=== PATIENT | female | born 1965 | race Caucasian/White ===

== ENCOUNTER → 2017-03-04 15:13 | Outpatient (CLI) | payer BC, SELFPAY ==
--- NOTE | 2017-03-04 15:32 | MM_ITS ---
MM DIG MAMM DX UNILAT LT CAD, US BREAST LT COMPLETE COMPARISON: 01/29/2017 and 08/21/2009 INDICATION: Follow-up abnormal mammogram ORDERING PHYSICIAN: Beba Graham PATIENT AGE: 51 years TECHNIQUE: Problem solving is performed along with left breast ultrasound FINDINGS: There is average fibroglandular tissue. There is an 11 x 7 mm nodular density in the deep aspect of the left breast laterally at the 3:00 region. Well-circumscribed with well-defined margins probably related to a cyst. In addition, there is a 5 mm nodular density in the lateral aspect of the left breast. No malignant appearing calcifications evident. Left breast ultrasound: 5 mm cyst at 3:00. There is an additional 7 mm cyst at 3:00. 6 mm cyst is present at the nipple. 6 mm complex cyst noted at 9:00. There is some tubular ectasia in the retroareolar region. No solid lesions evident. IMPRESSION: Fairly well-circumscribed asymmetric density in the lateral left breast may correspond to where this cyst noted on the mammogram. There is some discord and in size however therefore, short-term follow-up is recommended. BI-RADS Category: 3 Benign Finding Short Term Follow-up RECOMMENDED FOLLOWUP: 6M - 6 MONTH FOLLOW-UP (A letter has been sent to the patient regarding results of the study.)
== END ==
PROVIDERS: Family Provider Internal Medicine Adolescent Medicine; PCP Internal Medicine Adolescent Medicine; Visit Provider Nurse Practitioner Family
DX: R92.8 Other abnormal and inconclusive findings on diagnostic imaging of breast (principal)
CPT/HCPCS: 19083; 76641; 77065

== ENCOUNTER → 2018-11-16 10:59 | Outpatient (CLI) | payer BC, SELFPAY ==
--- NOTE | 2018-11-16 11:04 | US_ITS ---
PROCEDURE: US SOFT TISSUE HEAD AND NECK CLINICAL INDICATION: GOITER Palpable abnormality of the right neck, fatigue, night sweats COMPARISON: No exams were available for comparison FINDINGS: In the area of palpable concern there is a 1.4 x 0.6 cm area of decreased echogenicity with some increased echoes centrally consistent with a lymph node. Additional nodes are present including a 2.9 x 0.7 cm node in the right neck. Smaller nodes are present on the left measuring up to 9 mm. The parotid and submandibular glands have an unremarkable appearance. IMPRESSION: Bilateral cervical lymph nodes measuring up to 2.9 x 0.7 cm on the right. Consider CT of the neck with contrast for more thorough evaluation and better quantitation Dictated by: Alphonse Camargo MD 11/16/2018 15:55 Electronically signed by Alphonse Camargo MD in [facility] 11/16/2018 15:55
--- NOTE | 2018-11-16 11:05 | XR_ITS ---
PROCEDURE: XR LUMBAR SPINE 2-3V CLINICAL INDICATION: LOW BACK PAIN COMPARISON: No exams were available for comparison FINDINGS: Normal alignment. There are small endplate osteophytes at T12-L1 and L3 and L4 with mild degenerative disc disease at L4-5 and L5-S1. There are mild facet arthritic changes at L5-S1. Generalized vascular calcification is noted. There are bilateral tubal ligation clips. No fracture or dislocation. IMPRESSION: Degenerative changes, no acute finding Dictated by: Alphonse Camargo MD 11/16/2018 13:01 Electronically signed by Alphonse Camargo MD in [facility] 11/16/2018 13:01
--- NOTE | 2018-11-16 11:05 | XR_ITS ---
PROCEDURE: XR HIP LT 2-3V W/PELVIS CLINICAL INDICATION: YAQUELIN HIP PAIN COMPARISON: No exams were available for comparison FINDINGS: No fracture or dislocation is evident. No significant degenerative change. No lytic or blastic change. Unremarkable soft tissues. IMPRESSION: Negative left hip Dictated by: Alphonse Camargo MD 11/16/2018 13:01 Electronically signed by Alphonse Camargo MD in [facility] 11/16/2018 13:01
--- NOTE | 2018-11-16 11:24 | XR_ITS ---
PROCEDURE: XR HIP RT 2-3V W/PELVIS CLINICAL INDICATION: LOW BACK PAIN, HIP PAIN Right hip pain COMPARISON: XR HIP LT 2-3V W/PELVIS from 11/16/2018 FINDINGS: No fracture or dislocation is evident. No significant degenerative change. No lytic or blastic change. Unremarkable soft tissues. Nonspecific small cluster of calcification noted within the soft tissues in the right inguinal region IMPRESSION: No acute findings. Dictated by: Alphonse Camargo MD 11/16/2018 12:59 Electronically signed by Alphonse Camargo MD in [facility] 11/16/2018 12:59
[2018-11-16 14:59] LABS: Basophils # 0.1 K/mm3 (0-0.2); Basophils % 0.8 % (0.1-2.0); Eosinophils # 0.6 K/mm3 (0.0-0.4); Eosinophils % 4.3 % (0.1-12.0); Hematocrit 42.3 % (37.0-47.0); Hemoglobin 13.7 g/dL (12.2-16.2); Lymphocytes # 4.9 K/mm3 (0.7-4.5); Lymphocytes % 36.8 % (10-50); Mean Corpuscular HGB Conc 32.3 g/dL (31.8-35.4); Mean Corpuscular Hemoglobin 29.6 pg (27.0-31.2); Mean Corpuscular Volume 91.6 fl (81-99); Mean Platelet Volume 7.7 fl (7.4-10.4); Monocytes # 0.8 K/mm3 (0.1-1.0); Neutrophils # 6.9 K/mm3 (1.8-7.8); Neutrophils % 52.2 % (37.0-80.0); Platelet Count 333 K/mm3 (142-424); Red Blood Count 4.62 M/mm3 (4.20-5.40); Red Cell Distribution Width 13.2 % (11.5-17.5); White Blood Count 13.3 K/mm3 (4.8-10.8)
[2018-11-16 15:00] LABS: C-Reactive Protein 0.3 mg/dL (0.0-0.9)
[2018-11-16 19:20] LABS: Erythrocyte Sedimentation Rate 16 mm/hr (0-30)
[2018-11-18 13:55] LABS: Peripheral Smear Review Scanned Result
== END ==
PROVIDERS: PCP Nurse Practitioner Family; Visit Provider Nurse Practitioner Family
DX: E04.0 Nontoxic diffuse goiter (principal); M25.552 Pain in left hip; M54.5 Low back pain
CPT/HCPCS: 36415; 72100; 73502; 76536; 85025; 85651; 86140

== ENCOUNTER → 2018-12-06 09:36 | Outpatient (CLI) | payer BC, SELFPAY ==
--- NOTE | 2018-12-06 09:41 | CT_ITS ---
PROCEDURE: CT ABDOMEN PELVIS W CON CLINICAL HISTORY: LYMPHADENOPATHY, HIP PAIN COMPARISON: US SOFT TISSUE HEAD AND NECK from 11/16/2018 TECHNIQUE: 50 mL Optiray 350 Axial images obtained with sagittal and coronal reformats. All CT scans at the facility use one or more dose reduction, viz: automated exposure control, ma/kV adjustment per patient size (including targeted exams where dose is matched to indication, i.e. head), or iterative reconstruction technique. FINDINGS: There are 2 hypoattenuating lesions of the liver the largest in the left hepatic lobe measuring 13 mm and may represent hepatic cysts. The gallbladder, spleen, adrenal glands, and pancreas have an unremarkable appearance. There is a 1 cm isodense lesion of the mid aspect of the left kidney an exophytic isodense lesion of the left kidney posteriorly at 1.6 cm as well as a small cortical isodense area in the lower pole of the left kidney at 7 mm.. These are consistent with renal cyst and may be confirmed with ultrasound. There are scattered small mesenteric lymph nodes but no dominant mesenteric or retroperitoneal adenopathy. Unremarkable appendix. Urinary bladder is distended. There is a cystic area in the medial aspect of the right ovary at 2.7 cm in the right adnexal region. In the lower uterine segment on the left there is a bilocular cystic region at 3.5 by 2.6 cm associated with some coarse calcifications. This appears to be in the uterus and not ovarian in nature. Consider pelvic ultrasound for further evaluation. There is some mild ectasia of the right femoral vein and common femoral vein No acute bony anomalies. IMPRESSION: 1. Hepatic and left renal cysts 2. Scattered small mesenteric, retroperitoneal, and inguinal lymph nodes with no dominant or suspicious adenopathy evident. 3. Abnormal appearance of the uterus with a bilocular cystic area in the lower uterine segment with some associated calcifications along with cystic right adnexal lesion. Suggest pelvic ultrasound for further evaluation. Dictated by: Alphonse Camargo MD 12/07/2018 18:53 Electronically signed by Alphonse Camargo MD in [place] 12/07/2018 18:53
--- NOTE | 2018-12-06 09:41 | CT_ITS ---
PROCEDURE: CT SOFT TISSUE NECK W CON CLINICAL HISTORY: LYMPHADENOPATHY Generalized lymphadenopathy COMPARISON: No exams were available for comparison TECHNIQUE: Oral Contrast: IV Contrast: 50 mL Optiray 350 Axial images obtained with sagittal and coronal reformats. All CT scans at the facility use one or more dose reduction, viz: automated exposure control, ma/kV adjustment per patient size (including targeted exams where dose is matched to indication, i.e. head), or iterative reconstruction technique. FINDINGS: There is moderate mucosal thickening of the sphenoid sinus with mild mucosal thickening of the ethmoid sinuses and left maxillary sinus. No mastoid effusion. There is mild symmetrical prominence of the nasopharyngeal mucosa. There is also mild prominence of the lingual tonsils on the right. No abscess. There are few small bilateral cervical lymph nodes but no dominant adenopathy. The parotid and submandibular glands have an unremarkable appearance as does the epiglottis and glottic region. No thyroid masses. There is mild degenerative disc disease at C5-C6 and C6-C7. There is mild cervical curvature convex right. IMPRESSION: 1. Mild paranasal sinus disease. 2. Mild prominence of the lingual tonsils on the right nonspecific. 3. Small bilateral cervical nodes but no dominant adenopathy. Dictated by: Alphonse Camargo MD 12/07/2018 18:42 Electronically signed by Alphonse Camargo MD in [place] 12/07/2018 18:42
--- NOTE | 2018-12-06 09:41 | CT_ITS ---
PROCEDURE: CT CHEST W CON CLINICAL HISTORY: LYMPHADENOPATHY COMPARISON: No exams were available for comparison TECHNIQUE: 50 mL Optiray 350 Axial images obtained with sagittal and coronal reformats. All CT scans at the facility use one or more dose reduction, viz: automated exposure control, ma/kV adjustment per patient size (including targeted exams where dose is matched to indication, i.e. head), or iterative reconstruction technique. FINDINGS: No mediastinal or hilar mass or adenopathy. Normal heart size. No evidence of pericardial effusion. Calcified granuloma is present in the right upper lobe. There are mild atelectatic changes in the lung bases. There are mild centrilobular emphysematous changes. No suspicious pulmonary lesions evident. No acute bony anomalies. There are mild degenerative changes of the thoracic spine with mild thoracic scoliosis convex right in the midthoracic spine and convex left in the upper thoracic spine. There are small nodes in the axilla and supraclavicular region but no dominant adenopathy evident IMPRESSION: Nonspecific nonacute findings. No adenopathy apparent Dictated by: Alphonse Camargo MD 12/07/2018 18:46 Electronically signed by Alphonse Camargo MD in [place] 12/07/2018 18:46
--- NOTE | 2018-12-06 09:46 | XR_ITS ---
PROCEDURE: XR CHEST 2V CLINICAL HISTORY: Enlarged neck lymph node on the right side COMPARISON: CT CHEST W CON from 12/06/2018 FINDINGS: The cardiomediastinal silhouette and pulmonary vascularity are within normal limits. There are mild atelectatic or fibrotic changes in the lung bases. The remaining lungs are clear. Mild upper thoracic curvature convex left. No acute bony abnormalities. IMPRESSION: Atelectatic or fibrotic changes in the lung bases otherwise negative Dictated by: Alphonse Camargo MD 12/06/2018 18:06 Electronically signed by Alphonse Camargo MD in [place] 12/06/2018 18:06
== END ==
PROVIDERS: PCP Nurse Practitioner Family; Visit Provider Internal Medicine Medical Oncology
DX: R59.9 Enlarged lymph nodes, unspecified (principal); R59.0 Localized enlarged lymph nodes; M25.552 Pain in left hip
CPT/HCPCS: 70491; 71046; 71260; 74177; Q9967

== ENCOUNTER → 2018-12-08 10:42 | Outpatient (CLI) | payer BC, SELFPAY ==
[2018-12-08 11:21] LABS: Basophils # 0.1 K/mm3 (0-0.2); Basophils % 0.8 % (0.1-2.0); Eosinophils # 0.5 K/mm3 (0.0-0.4); Eosinophils % 3.6 % (0.1-12.0); Hematocrit 35.7 % (37.0-47.0); Hemoglobin 12.5 g/dL (12.2-16.2); Lymphocytes # 3.6 K/mm3 (0.7-4.5); Mean Corpuscular Hemoglobin 32.7 pg (27.0-31.2); Mean Corpuscular Volume 93.6 fl (81-99); Monocytes # 0.7 K/mm3 (0.1-1.0); Monocytes % 5.5 % (1.7-9.3); Neutrophils # 8.4 K/mm3 (1.8-7.8); Neutrophils % 63.1 % (37.0-80.0); Platelet Count 282 K/mm3 (142-424); Red Blood Count 3.82 M/mm3 (4.20-5.40); Red Cell Distribution Width 13.9 % (11.5-17.5); White Blood Count 13.2 K/mm3 (4.8-10.8)
[2018-12-08 13:10] LABS: Blood Urea Nitrogen 16 mg/dL (7-18); Creatinine,Serum 0.86 mg/dL (0.55-1.02); Estimated Glomerular Filt Rate 69 ml/min (>60); GFR (African American) 84 ML/MIN (>60)
== END ==
PROVIDERS: Visit Provider Otolaryngology
DX: R59.9 Enlarged lymph nodes, unspecified (principal)
CPT/HCPCS: 36415; 82565; 84520; 85025

== ENCOUNTER → 2019-10-25 14:52 | Outpatient (POV) | payer BC, SELFPAY ==
[2019-10-25 15:18] VITALS: BP 122/78; PULSE 74; RESP 18; O2SAT 98; BMI 31.9
--- NOTE | 2019-10-25 15:43 | HMH.PMCON ---
Assessment and Plan (1) Degenerative joint disease (DJD) of lumbar spine Current visit: Yes Status: Chronic Category: Medical Code(s): M47.816 - Spondylosis without myelopathy or radiculopathy, lumbar region (2) Sacroiliitis Current visit: Yes Status: Chronic Category: Medical Code(s): M46.1 - Sacroiliitis, not elsewhere classified - Assessment and plan all Dx Assessment and Plan for all problems:: Patient and I discussed options in regards to treatment of her left SI joint pain. We will send her to physical therapy for evaluation and treatment. Patient is currently on anti-inflammatories. I also discussed side sleeping utilizing a pillow between her legs. I also discussed the use of an SI joint belt. Follow-up with her after physical therapy reassess her symptoms that time she has been instructed to call the office if she has any issues prior to her next appointment. Dr. Soriano has reviewed this note and agrees with this plan of care. This note was dictated using voice recognition software and may contain errors or omissions HPI - Data of Consult Consult date: 10/25/19 Requesting Physician: Deanne Monaco APRN Primary Care Provider: Eva Hoyt - Consult Narrative Reason for consult: Left-sided lower back pain History of present illness: Ms. Hoover is a 54 year old female presents today for consultation in regards to her lower back pain. Patient has had pain for quite some time however it is gotten worse. She was seen a chiropractor which did help. She rates her pain a 5 out of 10 mostly in her left leg does radiate down but it does not past her knee. She is tender over her SI joint. Patient is on an anti-inflammatory medication. Patient has a positive Sallie test SI joint compression test and Anna's test on the left side. CC: Deanne Monaco APRN [facility] History I have reviewed the patient's past medical history: Yes Medical History: Reports:: Anxiety, Depression, Hyperlipidemia, Hypertension, Migraine, Tuberculosis Denies:: Cancer, Diabetes Mellitus Type 1, Diabetes Mellitus Type 2, MRSA *Have you ever received a pneumonia vaccine?: Yes *Have you received a flu vaccine this season?: Yes Other Medical History: Reports: Arthritis Laterality Cases: Bilateral: Tonsillectomy Other Surgeries: Yes: No Previous Surgery Amputation: No - *Social History Smoking Status: Never smoker Alcohol Intake: never Alcohol Intake Frequency:: holidays/special occasions only Substance Use Type: denies use *Occupational Status:: other Housing: house Household Members: other *Travel in the last 8 weeks: None - Psychiatric History Pschychiatric History:: Reports:: Anxiety, Depression Family Hx:: Unable to obtain Review of Systems - Review of Systems ROS General: no recent weight change, no fever, no sleep disturbances Respiratory: no cough, no shortness of air, no recurring pulmonary infections Cardiovascular/Peripheral Vascular: No chest pain, No palpitations, no edema, no shortness of breath. Gastrointestinal: no new onset incontinence, normal bowel movements reported Genitourinary: no new onset incontinence Musculoskeletal: SI joint pain Psychiatric: normal mood/ affect Neurological: [denies new onset weakness in extremities], [denies new onset balance issues] Meds Home Medications Medication Instructions Recorded Confirmed Type atorvastatin 40 mg tablet 40 mg PO DAILY 11/16/18 12/21/18 History cetirizine 10 mg capsule 10 mg PO DAILY 11/16/18 12/21/18 History cholecalciferol (vitamin D3) 25 1,000 unit PO DAILY 11/16/18 12/21/18 History mcg (1,000 unit) capsule citalopram 20 mg tablet 20 mg PO DAILY 11/16/18 12/21/18 History diclofenac sodium 75 mg 75 mg PO BID 11/16/18 12/21/18 History tablet,delayed release fluticasone propionate 50 1 spray INTRANASAL DAILY 11/16/18 12/21/18 History mcg/actuation nasal spray,suspension hydrochlorothiazide 12.5 mg capsule 12
== END ==
PROVIDERS: PCP Nurse Practitioner Family; Visit Provider Clinical Nurse Specialist Family Health
DX: M47.816 Spondylosis without myelopathy or radiculopathy, lumbar region (principal); M46.1 Sacroiliitis, not elsewhere classified
CPT/HCPCS: 99202

== ENCOUNTER → 2019-11-12 10:46 | Outpatient (CLI) | payer BC, SELFPAY ==
--- NOTE | 2019-11-12 10:50 | MM_ITS ---
PROCEDURE: MM DIG SCREENING MAMM BI W/CAD Digital Breast Tomosynthesis Included CLINICAL INDICATION: SCREENING There is no personal or family history of breast cancer. There has been a previous biopsy right breast for benign disease. COMPARISON: MG MM Digitiz Mammo Award Machine Operator from 08/21/2009 MG MM MOBILE MAMMO DIGITAL SCREEN W CAD YAQUELIN from 01/29/2017 MG DXLT MM Dig mamm DX unilat LT CAD from 03/04/2017 TECHNIQUE: Standard CC and MLO images and 3D Tomosynthesis was obtained. R2 CAD reviewed. FINDINGS: Mild to moderate scattered fibroglandular densities are seen in the central portions and subareolar regions of both breasts. There is a stable benign-appearing asymmetric density outer quadrant left breast. There is a small mole marker near the axilla left breast. There is a biopsy clip right breast. There is no suspicious lesion and no suspicious microcalcifications. IMPRESSION: Fibrofatty parenchyma with no suspicious lesions seen BI-RAD Category: 2 Benign Finding(s) FOLLOW-UP: 1YR 1 Year Follow-up (A letter has been sent to the patient regarding results of the study.) Dictated by: Dr. Pro Mike MD 11/16/2019 08:00 Dr. Pro Mike MD in [place] 11/16/2019 08:00
== END ==
PROVIDERS: PCP Nurse Practitioner Family; Visit Provider Nurse Practitioner Family
DX: Z12.31 Encounter for screening mammogram for malignant neoplasm of breast (principal)
CPT/HCPCS: 77063; 77067

== ENCOUNTER 2019-12-03 13:00 | Outpatient (RCR) | payer BC, SELFPAY ==
--- NOTE | 2019-11-06 06:59 | HMH.PTOPEV ---
PT Outpatient Evaluation Rehab PT Outpatient Evaluation Start: 11/01/19 15:32 Freq: Status: Active Protocol: Document 11/01/19 15:45 [email or web address] (Rec: 11/02/19 10:14 [email or web address] [id number]) Electronically Signed By Cristino Juarez, PT 11/01/19 15:45 Outpatient Therapy Subjective History Subjective History Pt. is a 54 year old female who presents to Outpatient PT clinic w/ complaints of constant and chronic LBP! of insidious onset 2+ years, and subacute and constant LLE hip spanning inferiorly to LLE knee P! of insidious onset 6 months ago. Pt. reports she is currently ambulating 3 miles daily(PT instructed pt. to discontinue at this time, pt. vocalized understanding) and states P! is worse at the start, but is then tolerable throughout. Pt. also reports symptoms worsening w/ sweeping and standing at the sink washing dishes. Pt. denies having recent diagnostic imaging taken of the L hip/LB, but states having an MRI in 2018 that was positive for bulging disc per pt. report. Pt. reports she wants to avoid injections/surgery if all possible. Pt. 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 Current medications include Diclofenac, Citalopram , Atorvastatin, and Hydrochlorothiazide. PMH includes Hypertension and previous RUE wrist fx. Chief Complaint Pain,Paresthesia Symptom Type Ache,Throb,Sharp,Burning, Numbness Symptoms Relieved By Brace/Support Symptoms Aggravated By Sitting,Physical Activity, Walking Prior Functional Limitations None Current Functional Limitations Sleeping,Standing,Sitting, Recreation Activity,Walking Symptom Description Constant and Continuous Level of pain today (0-
== END 2019-12-18 16:44 | disposition home or self-care (01) ==
LOC: PT.CARL 13:00
PROVIDERS: PCP Nurse Practitioner Family; Visit Provider Clinical Nurse Specialist Family Health
DX: M53.3 Sacrococcygeal disorders, not elsewhere classified (principal)
CPT/HCPCS: 97110; 97140; 97163

== ENCOUNTER 2019-12-17 19:49 | Emergency (ER) | payer BC, SELFPAY ==
[2019-12-17 19:58] VITALS: BP 140/98; PULSE 69; RESP 20; TEMP 36.6; O2SAT 98; BMI 31.9
--- NOTE | 2019-12-17 20:25 | HMH.EDUTC ---
[facility] [place] Disposition Clinical Impression: Viral syndrome Pharyngitis Qualifiers: Pharyngitis/tonsillitis etiology: unspecified etiology Qualified Code(s): J02.9 - Acute pharyngitis, unspecified Disposition: Home, Self-Care Condition on Discharge: Good Instructions: DI for Viral Syndrome Additional Instructions: Drink plenty of fluids. Take tylenol or ibuprofen for pain or fever. Take the medications as directed. Follow up with your regular doctor. GO TO THE ER FOR ANY WORSENING SYMPTOMS FOLLOW THE DIRECTIONS ON THE COVID-19 HAND OUT THAT WE GAVE YOU REGARDING SELF-ISOLATION UNTIL YOU KNOW YOUR COVID-19 RESULTS Prescriptions: Azithromycin [Z-Bernard 250mg Tab*] 250 mg PO UD DOSE PK #6 tab Transmission Status: Received by [id number] Referrals: Eva Hoyt [Primary Care Provider] - Time of Disposition: 20:41 Medical Decision Making - Medical Records Medical records reviewed: No: I reviewed the patient's medical records. - Peyman Inquiry Pt receiving controlled substance: No Vital Signs: 12/17/19 19:58 12/17/19 20:57 Temperature 97.9 F 97.9 F Temperature Source Temporal Artery Scan Oral Pulse Rate 69 Pulse Rate [Radial] 69 Respiratory Rate 20 20 Blood Pressure 140/98 H Blood Pressure [Right Arm] 140/98 H Blood Pressure Mean [Right Arm] 112 Blood Pressure Source Automatic Cuff Blood Pressure Source [Right Arm] Automatic Cuff Blood Pressure Position Sitting Blood Pressure Position [Right Arm] Sitting 02 Sat by Pulse Oximetry 98 Oxygen Delivery Method Room Air Room Air - Lab Data Lab results reviewed: Yes: I reviewed the patient's lab results. Orders (Tests/Meds): ED MEDICATIONS Discontinued Medications Generic Name Dose Route Start Last Admin Trade Name Freq PRN Reason Stop Dose Admin Azithromycin 500 mg 12/17/19 20:37 12/17/19 20:46 Azithromycin 250mg Tablet PO 12/17/19 20:38 500 mg ONCE ONE Administration Protocol ORDERS Category Date Time Status Covid-19 Nasal PCR Sendout Jose [facility] Stat Lab 12/17/19 20:04 Received [facility] [place] HPI - General Stated complaint: Sore throat, nausea, fever, cough Time Seen by Provider: 12/17/19 20:25 Mode of Arrival: Ambulatory Source of Information: Patient Limitations: No Limitations Description of Symptoms (Recalled from Triage Doc. by RN): fever, chills, sore throat since last night. temp of 99.7 HEENT Symptoms (Recalled from RN notes): Yes Resp Symptoms (Recalled from RN notes): No Skin Symptoms (Recalled from RN notes): No MS Symptoms (Recalled from RN notes): No Functional Status (Recalled from RN notes): wnl - History of Present Illness Provider Complaint: She states that she has had a sore throat, low grade fever, chills, head ache and feeling bad since earlier today. - Related Data Home Medications Medication Instructions Recorded Confirmed atorvastatin 40 mg tablet 40 mg PO DAILY 11/16/18 12/21/18 cetirizine 10 mg capsule 10 mg PO DAILY 11/16/18 12/21/18 cholecalciferol (vitamin D3) 25 1,000 unit PO DAILY 11/16/18 12/21/18 mcg (1,000 unit) capsule citalopram 20 mg tablet 20 mg PO DAILY 11/16/18 12/21/18 diclofenac sodium 75 mg 75 mg PO BID 11/16/18 12/21/18 tablet,delayed release fluticasone propionate 50 1 spray INTRANASAL DAILY 11/16/18 12/21/18 mcg/actuation nasal spray,suspension hydrochlorothiazide 12.5 mg capsule 12.5 mg PO DAILY 11/16/18 12/21/18 meloxicam 15 mg tablet 15 mg PO DAILY 11/16/18 12/21/18 multivitamin,Ca,min-folic mcg PO tab 11/16/18 12/21/18 acid-herbal no.160 100 mcg tablet naltrexone 8 mg-bupropion 90 mg 2 tab PO BID 11/16/18 12/21/18 tablet,extended release Previous Rx's Medication Instructions Recorded Azithromycin [Z-Bernard 250mg Tab*] 250 mg PO UD DOSE PK #6 tab 12/17/19 Allergies Allergy/AdvReac Type Severity Reaction Status Date / Time INGREDIENT: NO KNOWN - NO Allergy Unknown Uncoded 12/08/18 11:10 KNOWN DRUG ALLERGY
[2019-12-17 20:57] VITALS: BP 140/98; PULSE 69; RESP 20; TEMP 36.6; O2SAT 98
[2019-12-18 09:51] LABS: UTC Strep Screen (Rapid) Negative (Negative)
== END 2019-12-17 20:58 | disposition home or self-care (01) ==
PROVIDERS: Emergency Provider Nurse Practitioner Family; PCP Nurse Practitioner Family
DX: Z20.828 Contact with and (suspected) exposure to other viral communicable diseases (principal); B34.9 Viral infection, unspecified; J02.9 Acute pharyngitis, unspecified; F41.8 Other specified anxiety disorders; E78.5 Hyperlipidemia, unspecified; I10 Essential (primary) hypertension; G43.709 Chronic migraine without aura, not intractable, without status migrainosus; Z79.899 Other long term (current) drug therapy
CPT/HCPCS: 87880; 99202; U0003; U0004

== ENCOUNTER → 2020-02-07 12:41 | Outpatient (POV) | payer BC, SELFPAY ==
--- NOTE | 2020-02-07 13:04 | P.CONS_ITS ---
[facility] Pain Management SOAP Note Subjective:: Is a pleasant 54-year-old white female who presents today for follow-up. Patient has left SI joint issues. She has completed over 6 weeks of physical therapy she has gotten somewhat better however her pain is still 7 out of 10. She is having difficulty sleeping and doing her activities of daily living. Patient is interested in injection therapy. She is failed over 3 months of conservative therapy including medications, anti-inflammatories, and physical therapy. ROS General: no recent weight change, no fever, no sleep disturbances Respiratory: no cough, no shortness of air, no recurring pulmonary infections Cardiovascular/Peripheral Vascular: No chest pain, No palpitations, no edema, no shortness of breath. Gastrointestinal: no new onset incontinence, normal bowel movements reported Genitourinary: no new onset incontinence Musculoskeletal: SI joint pain Psychiatric: normal mood/ affect Neurological: [denies new onset weakness in extremities], [denies new onset balance issues] Objective:: Physical Exam General: Alert and oriented x3, no acute distress, pleasant and cooperative, [on room air] Lungs: Resps E/U, Symmetrical chest expansion, Eyes: PERRL Musculoskeletal: Flexion and extension of lumbar spine somewhat guarded secondary to pain, deep tendon reflexes normal, strength in upper and lower extremities [5/5], [abnormal gait noted] positive Sallie test SI joint compression test distraction test and Anna's test on the left side. Neurological: speech clear, supervisor production department equal, no gross sensory deficits Assessment:: Sacroiliitis Plan:: We will schedule the patient for a left SI joint injection. I will follow-up with her after this reassess her symptoms at that time she has been instructed to call the office if she has any issues prior to her next appointment. Dr. Soriano has reviewed this note and agrees with this plan of care. This note was dictated using voice recognition software and may contain errors or omissions [facility] History I have reviewed the patient's past medical history: Yes Medical History: Reports:: Anxiety, Depression, Hyperlipidemia, Hypertension, Migraine, Tuberculosis Denies:: Cancer, Diabetes Mellitus Type 1, Diabetes Mellitus Type 2, MRSA *Have you ever received a pneumonia vaccine?: Yes *Have you received a flu vaccine this season?: Yes Other Medical History: Reports: Arthritis Laterality Cases: Bilateral: Tonsillectomy Other Surgeries: Yes: No Previous Surgery Amputation: No - *Social History Smoking Status: Never smoker Alcohol Intake: never Alcohol Intake Frequency:: holidays/special occasions only Substance Use Type: denies use *Occupational Status:: other Housing: house Household Members: other *Travel in the last 8 weeks: None - Psychiatric History Pschychiatric History:: Reports:: Anxiety, Depression Family Hx:: Unable to obtain
[2020-02-07 13:50] VITALS: BP 125/85; PULSE 74; RESP 18; TEMP 36.8; O2SAT 98; BMI 31.9
== END ==
PROVIDERS: PCP Nurse Practitioner Family; Visit Provider Clinical Nurse Specialist Family Health
DX: M46.1 Sacroiliitis, not elsewhere classified (principal)
CPT/HCPCS: 99212

== ENCOUNTER 2020-02-18 14:02 | Day surgery (SDC) | payer BC, SELFPAY ==
[2020-02-18 14:29] VITALS: BP 137/88; PULSE 88; RESP 18; TEMP 36.4; O2SAT 99; BMI 31.1
[2020-02-18 14:47] VITALS: BP 119/75; BP 125/74; PULSE 74; PULSE 76; RESP 18; O2SAT 98
--- NOTE | 2020-02-18 14:50 | HMH.PMPROC ---
- Procedure Date: 02/18/20 Time: 14:50 Anesthesiologist:: Deanne Monaco APRN Complications:: None Pre-procedure Diagnosis:: Sacroiliitis Post-procedure Diagnosis:: Same Indications for Procedure:: Patient is a pleasant 54-year-old white female who presents today for left SI joint injection. Patient has completed over 6 weeks of physical therapy. She had somewhat better however she still rates her pain a 7 out of 10. She has difficulty sleeping. Patient has a positive Sallie test SI joint compression test Anna's test distraction test on the left side. We will move forward with left SI joint injection today. Procedure Details:: Informed consent was obtained and the risks and benefits of the procedure were explained to the patient. Patient was taken to the procedure room. Patient was placed prone on the procedure table. The left hip was prepped using ChloraPrep as a cleansing solution. The skin and subcutaneous tissues were anesthetized using lidocaine. Using fluoroscopic guidance I placed a 22-gauge spinal needle into the inferior aspect of the left SI joint. After this I injected 5 mL bupivacaine 0.25% and Depo-Medrol 40 mg into the left SI joint. The patient tolerated the procedure well with no complication. Plan and Disposition:: I will see the patient back in several weeks reassess her symptoms at that time she has been instructed to call the office if she has any issues prior to her next appointment. Dr. Soriano has reviewed this note and agrees with this plan of care. This note was dictated using voice recognition software and may contain errors or omissions
[2020-02-18 15:00] VITALS: BP 147/94; PULSE 83; RESP 20; O2SAT 99
== END 2020-02-18 15:01 | disposition home or self-care (01) ==
LOC: SC.PAINP 14:03
PROVIDERS: PCP Nurse Practitioner Family; Visit Provider Clinical Nurse Specialist Family Health
DX: M46.1 Sacroiliitis, not elsewhere classified (principal); E78.5 Hyperlipidemia, unspecified; F41.9 Anxiety disorder, unspecified
CPT/HCPCS: 27096; G0260; J1040; Q9966

== ENCOUNTER → 2020-02-28 10:05 | Outpatient (POV) | payer BC, SELFPAY ==
--- NOTE | 2020-02-28 11:34 | HMH.PAINSOAP ---
[facility] Pain Management SOAP Note Subjective:: Patient is a 54-year-old white female who presents today for follow-up. She recently had a left SI joint injection. She did well with her injection. She does say, however, following her injection she did a great deal of walking for [employer] shopping. She says that her pain has now changed from the left side over to the right side. She rates her pain an 8 out of 10 today. She is having difficulty sleeping and standing and doing her usual activities. She has tried physical therapy for greater than 6 weeks. She has also failed conservative therapies for 3 months which included medications and a home stretching program. She did get about 80% relief from her left SI joint injection and is continuing to get relief. Review of Systems General: No recent weight changes, no fever, no sleep disturbances Respiratory: No cough, no shortness of air, no recurring pulmonary infections Cardiovascular/peripheral vascular: No chest pain, no palpitations, no edema, no shortness of breath Gastrointestinal: No new onset incontinence, normal bowel movements reported Genitourinary: No new onset incontinence Musculoskeletal: Right low back pain with radiation into right hip and groin, numbness and tingling right leg Psychiatric: Normal mood/affect Neurological: [Denies weakness in extremities], [denies balance issues] Objective:: Physical exam General: Alert and oriented x3, no acute distress, pleasant and cooperative, [on room air] Lungs: Respirations even and unlabored, symmetrical chest expansion Eyes: PERRL Musculoskeletal: Flexion and extension of lumbar spine somewhat guarded secondary to pain, deep tendon reflexes normal, strength in upper and lower extremities [5/5], [abnormal gait noted], positive compression test, positive Anna's test, positive distraction test Neurological: Speech clear, grey percher equal, no gross sensory deficit Assessment:: Right sacroiliitis Plan:: We will schedule the patient for right SI joint injection. She has had a left SI joint injection in the past and has gotten relief. She will continue with anti-inflammatories. We will see her back in clinic after her SI injection to reassess her symptoms. She has been given instructions regarding the injection. She would like to proceed with the injection. She has been instructed to contact clinic if she has any concerns before next appointment. The patient and I specifically discussed risk factors for COVID19. These risks include, but are not limited to age greater than 60, heart or lung disease, diabetes, immunosuppression, and travel. We also discussed NSAIDs may worsen COVID19 infection or symptoms. Patient should not use NSAIDs to treat COVID19 signs or symptoms. Patient was also informed that any type of corticosteroid of any form (oral or injection) will decrease the patient's immune system response and may increase the likelihood of COVID19 infection and symptoms. And [facility] History I have reviewed the patient's past medical history: Yes Medical History: Reports:: Anxiety, Depression, Hyperlipidemia, Hypertension, Migraine, Tuberculosis Denies:: Cancer, Diabetes Mellitus Type 1, Diabetes Mellitus Type 2, MRSA, Seizures *Have you ever received a pneumonia vaccine?: No *Have you received a flu vaccine this season?: No Other Medical History: Reports: Arthritis. Denies: Blood Transfusion Reaction Laterality Cases: Bilateral: Tonsillectomy Other Surgeries: Yes: No Previous Surgery Amputation: No Fractures: No - *Social History Smoking Status: Never smoker Alcohol Intake: never Alcohol Intake Frequency:: holidays/special occasions only Substance Use Type: denies use *Occupational Status:: unemployed Housing: house Household Members: spouse *Travel in the last 8 weeks: None - Psychiatric History Pschychiatric History:: Reports:: Anxiety, Depression Family Hx:: Unable to obtain
[2020-02-28 12:43] VITALS: BP 150/78; PULSE 74; RESP 18; TEMP 36.8; O2SAT 98; BMI 31.1
== END ==
PROVIDERS: PCP Nurse Practitioner Family; Visit Provider Clinical Nurse Specialist Family Health
DX: M46.1 Sacroiliitis, not elsewhere classified (principal)
CPT/HCPCS: 99212

== ENCOUNTER 2020-03-07 13:34 | Day surgery (SDC) | payer BC, SELFPAY ==
[2020-03-07 14:06] VITALS: BP 155/58; PULSE 98; RESP 18; TEMP 36.6; O2SAT 98; BMI 31.1
[2020-03-07 14:49] VITALS: BP 125/88; BP 127/79; PULSE 85; PULSE 88; RESP 18; O2SAT 99
[2020-03-07 14:57] VITALS: BP 139/92; PULSE 83; RESP 18; TEMP 36.6; O2SAT 98
--- NOTE | 2020-03-07 15:28 | HMH.PMPROC ---
- Procedure Date: 03/07/20 Time: 15:28 Anesthesiologist:: Johnny Soriano MD Complications:: None Pre-procedure Diagnosis:: Sacroiliitis Post-procedure Diagnosis:: Same Indications for Procedure:: Patient pleasant 54-year-old white female who we are treating for bilateral hip pain. She previously had a left SI joint injection which helped her tremendously for approximately 3 weeks. She now has pain over both SI joints. She is tender over both SI joints. She is positive Anna's test bilaterally. She has positive SI joint compression test bilaterally. She has a positive Sallie test bilaterally. She has a positive distraction test bilaterally. We will do bilateral SI joint injections today to help her with her pain symptoms. Procedure Details:: B/L SI joint injection under fluoroscopy Informed consent was obtained and the risks and benefits of the procedure was explained to the patient. The patient was taken to the procedure room and placed prone on the procedure table. The patient was prepped using ChloraPrep. The skin and subcutaneous tissues overlying the SI joints were anesthetized using lidocaine. I placed a 22-gauge needle first in the left SI joint and second in the right SI joint. Needle placement was confirmed with dye. After this we injected 5 mL bupivacaine 0.25% and Depo-Medrol 40 mg into each SI joint. Patient tolerated the procedure well with no complication. Plan and Disposition:: We will follow-up with her in 2 weeks. Will reevaluate symptoms at that time. If she does not get long-term relief from these injections she may be a candidate for SI joint stabilization.
== END 2020-03-07 14:55 | disposition home or self-care (01) ==
LOC: SC.PAINP 13:34
PROVIDERS: PCP Nurse Practitioner Family; Visit Provider Anesthesiology
DX: M46.1 Sacroiliitis, not elsewhere classified (principal); I10 Essential (primary) hypertension; E78.5 Hyperlipidemia, unspecified; F41.9 Anxiety disorder, unspecified; F32.9 Major depressive disorder, single episode, unspecified; Z79.899 Other long term (current) drug therapy
CPT/HCPCS: 27096; G0260; J1030; Q9966

== ENCOUNTER → 2022-09-22 09:58 | Outpatient (CLI) | payer BC, SELFPAY ==
--- NOTE | 2022-09-22 10:02 | US_ITS ---
FINAL REPORT TECHNIQUE: Ultrasound images of the kidneys and bladder were obtained. CLINICAL HISTORY: NEOPLASM OF LEFT KIDNEY COMPARISON: None FINDINGS: The right kidney measures 11.4 cm in length. It is normal in echogenicity. There is no hydronephrosis. The left kidney measures 11.3 cm in length. It is normal in echogenicity. There is no hydronephrosis. There are multiple renal cysts measuring up to 18 mm in size. At least one of the cysts has mural calcification present. No solid masses are seen. IMPRESSION: There are benign appearing cysts in the left kidney. If there is a high suspicion of possible malignancy, would recommend contrast-enhanced renal protocol CT or MRI for further evaluation. Reviewed, Interpreted and Dictated by Marti Dominguez MD Transcribed by Elza Lanza Authenticated and [facility]
== END ==
PROVIDERS: PCP Nurse Practitioner Family; Visit Provider Nurse Practitioner Family
DX: D49.512 Neoplasm of unspecified behavior of left kidney (principal)
CPT/HCPCS: 76770

== ENCOUNTER 2023-08-16 21:29 | Emergency (ER) | payer OTHER, SELFPAY ==
[2023-08-16 21:30] VITALS: BP 150/95; PULSE 71; RESP 18; TEMP 36.8; O2SAT 94; BMI 27.3
--- NOTE | 2023-08-16 21:48 | PC.NURSE ---
Laceration to forehead cleansed with soap and water, wet gauze applied, and wrapped with curlex for CT
--- NOTE | 2023-08-16 21:55 | CT_ITS ---
PROCEDURE INFORMATION: Exam: CT Head Without Contrast Exam date and time: 08/16/2023 10:06 PM Age: 58 years old Clinical indication: Injury or trauma; Fall; Laceration; Without residual foreign body; Forehead TECHNIQUE: Imaging protocol: Computed tomography of the head without contrast. Radiation optimization: All CT scans at this facility use at least one of these dose optimization techniques: automated exposure control; mA and/or kV adjustment per patient size (includes targeted exams where dose is matched to clinical indication); or iterative reconstruction. COMPARISON: US SOFT TISSUE HEAD AND NECK 11/16/2018 10:52 AM FINDINGS: Brain: No hemorrhage. No mass effect. Cerebral ventricles: No ventriculomegaly. Paranasal sinuses: Inflammatory changes in the sinuses without evidence of air-fluid level. Mastoid air cells: Visualized mastoid air cells are well aerated. Dental: Metallic dental hardware artifact. Bones: Unremarkable. No acute fracture. Soft tissues: Soft tissue laceration anteriorly on the left IMPRESSION: No evidence of acute intracranial hemorrhage.
--- NOTE | 2023-08-16 21:56 | ED_ITS ---
<Statement entered by Sudhir Boo MD - 08/17/23 23:35> I was consulted by the ASTON, and we discussed the complexity of the problems being addressed. I approved the treatment and management plan for this patient's care in the emergency department, thus performing a substantive portion of the medical decision making. Sudhir Boo MD, GADIEL, FACEP Discharge Plan Disposition Patient Disposition: Home, Self-Care Condition: Good Prescriptions Prescriptions: New cephalexin 500 mg capsule 500 mg PO BID 10 Days Qty: 20 0RF No Action meloxicam 15 mg tablet 15 mg PO DAILY hydrochlorothiazide 12.5 mg capsule 12.5 mg PO DAILY cholecalciferol (vitamin D3) 1,000 unit capsule 1,000 unit PO DAILY mv,Ca,quf-MW-cpuszf no.160 100 mcg tablet 1 mcg PO DAILY Contrave 8-90 mg tablet extended release 2 tab PO BID citalopram [Celexa] 20 mg tablet 20 mg PO DAILY diclofenac sodium 75 mg tablet,delayed release (DR/EC) 75 mg PO BID atorvastatin [Lipitor] 40 mg tablet 40 mg PO DAILY Zyrtec 10 mg capsule 10 mg PO DAILY fluticasone propionate [Flonase Allergy Relief] 50 mcg/actuation spray,suspension 1 spray INTRANASAL DAILY Referrals Follow up/Referrals: Eva Hoyt [Primary Care Provider] - See instructions Activity Restrictions/Add. Instructions Additional Instructions/Restrictions: You may wash the wound with soap and water pat dry do not rub. Steri-Strips will fall off on their own do not help then. Return to ER for any worsening signs or symptoms including redness drainage increasing pain etc. Clinical Impressions Clinical Impression: Laceration Instructions Patient Instructions: DI for Laceration Repair Discharge ED Provider: Sudhir Boo General Adult HPI General Chief complaint: Wound/Laceration Stated complaint: [id number]/[id number]@[id number] fall ,head lac Time Seen by Provider: 08/16/23 21:56 Mode of Arrival: Wheelchair Source of Information: Patient and Spouse Limitations: No Limitations Description of Symptoms (Recalled from ER Triage Doc. by RN): Patient was at work, standing on a rock outside and slipped and fell. Patient reports that she scraped her head on a landscaping rock causing a laceration. Patient denies dizziness or symptoms prior to the fall, patient denies other injury, patient denies loss of conciousness. History of Present Illness HPI narrative: Patient presents for for evaluation of a laceration. Patient was standing on a rock to change letters in an a lighted sign outside of a restaurant when she slipped falling striking her forehead on the rock. She did not lose consciousness. She was able to ambulate immediately at the scene. On arrival patient's Glascow coma score is 15. She reports no neurologic deficits loss of taste or sense of smell dizziness diplopia chest pain shortness of breath fever chills hemoptysis hematochezia melena nausea vomit diarrhea. Related Data Home Medications Medication Instructions Recorded Confirmed atorvastatin 40 mg tablet (Lipitor) 40 mg PO DAILY Cholesterol 11/16/18 03/07/20 cetirizine 10 mg capsule (Zyrtec) 10 mg PO DAILY Allergy symptoms 11/16/18 03/07/20 cholecalciferol (vitamin D3) 25 1,000 unit PO DAILY Supplement 11/16/18 03/07/20 mcg (1,000 unit) capsule citalopram 20 mg tablet (Celexa) 20 mg PO DAILY mood 11/16/18 03/07/20 diclofenac sodium 75 mg 75 mg PO BID NSAID 11/16/18 03/07/20 tablet,delayed release fluticasone propionate 50 1 spray intranasal DAILY Allergy 11/16/18 03/07/20 mcg/actuation nasal symptoms spray,suspension (Flonase Allergy Relief) hydrochlorothiazide 12.5 mg capsule 12.5 mg PO DAILY water pill 11/16/18 03/07/20 meloxicam 15 mg tablet 15 mg PO DAILY NSIAD 11/16/18 03/07/20 multivitamin,Ca,min-folic 1 mcg PO DAILY Supplement 11/16/18 03/07/20 acid-herbal no.160 100 mcg tablet naltrexone 8 mg-bupropion 90 mg 2 tab PO BID alcohol dependency 11/16/18 03/07/20 tablet,extended release (Contrave) Previous Rx's Medication Instructions Recorded cephalexin 500 mg capsule 500 mg PO BID 10 days #20 caps 08/16/23 Allergies Allergy/AdvReac Type Severity Reaction Status Date / Time INGREDIENT: NO KNOWN - NO Allergy Unknown Uncoded 12/08/18 11:10 KNOWN DRUG ALLERGY [facility] Disclaimer: The information contained in this section may have been updated after the patient was seen, as this information can be updated by other users. Social History Smoking Status: Former smoker second hand exposure: No alcohol intake: never substance use type: denies use current occupational status: retired Travel in the last 8 weeks: None household members: spouse housing: house current occupational exposures/hazards: No caffeine: Yes ROS Obtained: Yes Systems reviewed as appropriate & no additional complaints except as documented Physical Exam General General appearance: alert and in no apparent distress Head Head exam: other (Patient is a 5 cm laceration in the center of her forehead going from superior to inferior) Eye Eye exam: Present normal appearance, PERRL and EOMI Respiratory Respiratory exam: Present normal lung sounds bilaterally; Absent accessory muscle use Cardiovascular Cardiovascular exam: Present regular rate, normal rhythm and normal heart sounds Neurological Exam Neurological exam: Present alert, oriented X3 and CN II-XII intact Medical Decision Making Peyman Inquiry Pt receiving controlled substance: No Vital Signs: 08/16/23 21:30 Temperature 98.2 F Temperature Source Oral Pulse Rate [Left Radial] 71 Respiratory Rate 18 Blood Pressure [Right Arm] 150/95 H Blood Pressure Mean [Right Arm] 113 Blood Pressure Source [Right Arm] Automatic Cuff Blood Pressure Position [Right Arm] Sitting 02 Sat by Pulse Oximetry 94 L Oxygen Delivery Method Room Air Orders (Tests/Meds): ED MEDICATIONS Discontinued Medications Generic Name Dose Route Start Last Admin Trade Name Júnior PRN Reason Stop Dose Admin Acetaminophen 1,000 mg 08/16/23 21:54 08/16/23 22:30 Acetaminophen 500mg Tab PO 08/16/23 21:55 1,000 mg ONCE ONE Administration Ibuprofen 800 mg 08/16/23 21:54 08/16/23 22:29 Ibuprofen 400 Mg Tablet PO 08/16/23 21:55 800 mg ONCE ONE Administration Lidocaine/Epinephrine 20 ml 08/16/23 21:54 08/16/23 22:35 Lidocaine 1% W/Epi 1:100,000 20ml Vial SQ 08/16/23 21:55 20 ml ONCE ONE Administration Oxycodone HCl 5 mg 08/16/23 21:54 08/16/23 22:30 Oxycodone 5mg Immediate Release Tablet PO 08/16/23 21:55 5 mg ONCE ONE Administration Tetanus/Reduced Diphtheria/Acell Pertussis 0.5 ml 08/16/23 21:54 08/16/23 22:24 Tet/Diphth/Pert-Adult 0.5ml Syringe IM 08/16/23 21:55 0.5 ml .ONCE ONE Administration ORDERS Category Date Time Status CT head/brain wo con Stat Cat Scan 08/16/23 21:55 Taken Medical Decision Narrative: In summary patient is a 58-year-old female who presents to the emergency department for evaluation of forehead laceration. Patient is dynamically stable upon arrival, afebrile. Physical exam is remarkable for a 5 cm laceration in the center of her forehead. Calvarium is visible but no bony deformity palpable. Glascow coma, score 15. Extraocular movements are intact without pain cranial nerves II through XII are intact grossly to exam.. Differential diagnosis includes superficial laceration versus open fracture. Initial workup will be conducted with CT scan of the head without contrast. Initial interven tions include Toradol Tylenol oxycodone. Initial workup reviewed by me and my informal review of her CT scan of her head shows no acute fractures.. Upon repeat evaluation provided superficial anesthesia and irrigated the wound aggressively with 500 cc of fluid and Hibiclens. Wound then closed primarily with a 4-0 subcuticular stitch Dermabond and Steri-Strip. Given this appropriate for discharge with a prescription for Keflex with first dose given here and updating her tetanus. Procedures Laceration Laceration 1: Site: face Size (cm): 5 Description: linear Depth: simple, single layer and involves subcutaneous layer Local Anesthetic: lidocaine 1% and with epi Amount of anesthesia used (mL): 10 Pre-repair: wound explored, irrigated extensively and deep structures intact Skin layer closed with: Dermabond and other (Steri-Strips) Subcutaneous layer closed with: other (Monocryl) Size: 4-0 (Monocryl) Technique: running Critical Care Critical Care Time Critical Care Time: No
[2023-08-16] MEDS: TET/DIPHTH/PERT-ADULT 0.5ML SYRINGE 0.5 ML IM (22:24)
[2023-08-16] MEDS: IBUPROFEN 400 MG TABLET 800 MG PO (22:29)
[2023-08-16] MEDS: ACETAMINOPHEN 500MG TAB 1000 MG PO (22:30)
[2023-08-16] MEDS: OXYCODONE 5MG IMMEDIATE RELEASE TABLET 5 MG PO (22:30)
[2023-08-16] MEDS: LIDOCAINE 1% W/EPI 1:100,000 20ML VIAL 20 ML SQ (22:35)
[2023-08-16] MEDS: cephALEXin 500MG CAPSULE 500 MG PO (23:20)
[2023-08-16 23:25] VITALS: BP 142/76; PULSE 89; RESP 17; TEMP 36.8; O2SAT 97
== END 2023-08-16 23:27 | disposition home or self-care (01) ==
PROVIDERS: Emergency Provider Student in an Organized Health Care Education/Training Program; PCP Nurse Practitioner Family
DX: S01.81XA Laceration without foreign body of other part of head, initial encounter (principal); Z23 Encounter for immunization; W17.89XA Other fall from one level to another, initial encounter
CPT/HCPCS: 12013; 70450; 90471; 90715; 99284

== ENCOUNTER 2024-03-06 14:48 | Outpatient (CLI) | payer OTHER, SELFPAY ==
--- NOTE | 2024-03-06 14:51 | MM_ITS ---
PROCEDURE INFORMATION: Exam: MG Bilateral Screening 3D Mammography Exam date and time: 03/06/2024 2:59 PM Age: 58 years old Clinical indication: Screening examination TECHNIQUE: Imaging protocol: Bilateral Screening tomosynthesis and 2D mammography including computer-aided detection (CAD) when performed. COMPARISON: 1. MG MM DIG SCREENING MAMM BI W/CAD 11/12/2019 10:57 AM 2. MG DXLT MM Dig mamm DX unilat LT CAD 03/04/2017 3:42 PM FINDINGS: MAMMOGRAPHY: Breast composition: There are scattered areas of fibroglandular density. Mass: No suspicious masses. Architectural distortion: None. Calcifications: No suspicious calcifications. Asymmetric density: None. Skin thickening: None. Axillary adenopathy: None. IMPRESSION: No mammographic evidence of malignancy. Annual screening is recommended unless otherwise clinically indicated. ASSESSMENT: BI-RADS Category 1: Negative.
== END 2024-03-06 23:59 | disposition home or self-care (01) ==
LOC: RAD 14:48
PROVIDERS: PCP Nurse Practitioner Family; Visit Provider Nurse Practitioner Family
DX: Z12.31 Encounter for screening mammogram for malignant neoplasm of breast (principal)
CPT/HCPCS: 77063; 77067